=== PATIENT | male | born 1960 | race Caucasian/White ===

== ENCOUNTER 2018-09-22 16:42 | Emergency (ER) | payer BC ==
--- NOTE | 2018-09-22 17:20 | EDM.PDOC ---
ED HPI GENERAL MEDICAL PROBLEM - General Chief Complaint: Allergic Reaction Stated Complaint: HIVES Time Seen by Provider: 09/22/18 16:45 Source of Information: Reports: Patient History Limitations: Reports: No Limitations - History of Present Illness INITIAL COMMENTS - FREE TEXT/NARRATIVE: History of present illness: []Patient has had a breakdown and rash all over his body for the past 4 days. He denies having any insect bites and lesions are not itchy. Since that he had a fever 1 day before that subsided and did not return. Had a mild case of chickenpox when he was a child. She denies any chest pain, shortness of breath, cough or nausea, vomiting or diarrhea. Review of systems: As per history of present illness and below otherwise all systems reviewed and negative. Past medical history: As per history of present illness and as reviewed below otherwise noncontributory. Surgical history: As per history of present illness and as reviewed below otherwise noncontributory. Social history: No reported history of drug or alcohol abuse. Family history: As per history of present illness and as reviewed below otherwise noncontributory. Physical exam: General: Well developed, well nourished in NAD HEENT: Atraumatic, normocephalic, pupils reactive, negative for conjunctival pallor or scleral icterus, mucous membranes moist, throat clear, neck supple, nontender, trachea midline. Lungs: Clear to auscultation, breath sounds equal bilaterally, chest nontender. Heart: S1S2, regular, negative for clicks, rubs, or JVD. Abdomen: NABS, Soft, nondistended, nontender. Negative for masses or hepatosplenomegaly. Negative for costovertebral tenderness. Pelvis: Stable nontender. Genitourinary: Deferred. Rectal: Deferred. Extremities: Atraumatic, negative for cords or calf pain. Neurovascular unremarkable. Neuro: Awake, alert, oriented. Cranial nerves II through XII unremarkable. Cerebellum unremarkable. Motor and sensory unremarkable throughout. Exam nonfocal. Skin: Diffuse 3-4 mm erythematous lesions with crusting some have pustules some are just raised. No sign of of infection on any of the lesions, warm and dry Diagnostics: None Therapeutics: None ED Course: Stable Impression: Varicella Prescriptions: None Plan: Follow-up with primary care return if symptoms worsen Definitive disposition and diagnosis as appropriate pending reevaluation and review of above. - Related Data Allergies Allergy/AdvReac Type Severity Reaction Status Date / Time almond Allergy Hives Verified 09/22/18 17:04 Home Meds: Home Meds Allopurinol [Zyloprim] 300 mg PO DAILY 05/19/14 [History] Losartan [Cozaar] 50 mg PO DAILY 05/19/14 [History] Vitamin B Complex 1 each PO DAILY 05/19/14 [History] Aspirin 81 mg PO DAILY 09/22/18 [History] Past Medical History Cardiovascular History: Reports: Hypertension - Infectious Disease History Infectious Disease History: Reports: Chicken Pox - Past Surgical History GI Surgical History: Reports: Appendectomy, Bariatric Procedure Social & Family History - Tobacco Use Smoking Status *Q: Never Smoker - Recreational Drug Use Recreational Drug Use: No ED ROS ALLERGIC REACTION - Review of Systems Review Of Systems: ROS reveals no pertinent complaints other than HPI. ED EXAM GENERAL NO PERIP PULSE - Physical Exam Exam: See Below (See history of present illness) Course - Vital Signs Last Recorded V/S: Last Vital Signs Temp 97.8 F 09/22/18 17:05 Pulse 90 09/22/18 17:05 Resp 16 09/22/18 17:05 BP 129/87 09/22/18 17:05 Pulse Ox 95 09/22/18 17:05 Departure - Departure Time of Disposition: 17:19 Disposition: Home, Self-Care 01 Condition: Good Clinical Impression: Chickenpox Qualifiers: Varicella complications: without complication Qualified Code(s): B01.9 - Varicella without complication - Discharge Information *PRESCRIPTION DRUG MONITORING PROGRAM REVIEWED*: No *COPY OF PRESCRIPTION DRUG MONITORING REPORT IN PATIENT WILLIE: No Referrals: PCP,Unknown [Primary Care Provider] - Additional Instructions: The following information is given to patients seen in the emergency department who are being discharged to home. This information is to outline your options for follow-up care. We provide all patients seen in our emergency department with a follow-up referral. The need for follow-up, as well as the timing and circumstances, are variable depending upon the specifics of your emergency department visit. If you don't have a primary care physician on staff, we will provide you with a referral. We always advise you to contact your personal physician following an emergency department visit to inform them of the circumstance of the visit and for follow-up with them and/or the need for any referrals to a consulting specialist. The emergency department will also refer you to a specialist when appropriate. This referral assures that you have the opportunity for follow-up care with a specialist. All of these measure are taken in an effort to provide you with optimal care, which includes your follow-up. Under all circumstances we always encourage you to contact your private physician who remains a resource for coordinating your care. When calling for follow-up care, please make the office aware that this follow-up is from your recent emergency room visit. If for any reason you are refused follow-up, please contact the [facility] Emergency Department at and asked to speak to the emergency department charge nurse. [facility] [address] [place] [id number]
== END 2018-09-22 17:30 | disposition home or self-care (01) ==
LOC: MW.ED 16:42
DX: B01.9 Varicella without complication (principal); I10 Essential (primary) hypertension; Z79.899 Other long term (current) drug therapy; Z79.82 Long term (current) use of aspirin; Z91.018 Allergy to other foods
CPT/HCPCS: 99282

== ENCOUNTER 2021-02-22 16:38 | Emergency (ER) | payer BC ==
--- NOTE | 2021-02-22 17:02 | EDM.PDOC ---
<Axel John - Last Filed: 02/22/21 18:53> ED HPI GENERAL MEDICAL PROBLEM - General Chief Complaint: Neuro Symptoms/Deficits Stated Complaint: SEIZURE Time Seen by Provider: 02/22/21 16:39 - History of Present Illness INITIAL COMMENTS - FREE TEXT/NARRATIVE: CHIEF COMPLAINT(S): Seizure HISTORY OF PRESENT ILLNESS: This is a 60-year-old man with a past medical history of gout, hypertension who comes to the emergency department with a chief complaint of seizure. Per EMS: The patient had a seizure while at the grocery store. It is uncertain what type of seizure however upon arrival the patient was noted to be possibly postictal and alert and oriented x2. They state that his EKG did show PVCs otherwise his vitals were stable in route. The patient states that he is not currently experiencing any symptoms. He denies any headache, chest pain, shortness of breath, abdominal pain, nausea or vomiting. He denies any blurry vision, double vision, loss of vision. He denies any numbness, tingling, weakness. He denies any trouble walking, speaking or swallowing. He states that he has not had a seizure in the past and denies any history of seizure disorder. He denies any recent travel, recent surgery, prior history of DVT or PE. He states that he had no preceding symptoms. He does not recall the event. REVIEW OF SYSTEMS: Constitutional: Denies fever, chills. Eyes: Denies eye pain Ears, Nose, Mouth, & Throat: Denies earache Cardiovascular: Denies chest pain Respiratory: Denies shortness of breath Gastrointestinal: Denies abdominal pain, nausea, vomiting, diarrhea, hematoch ezia. Genitourinary: Denies hematuria, urinary incontinence Skin:Denies a rash MSK: Denies joint pain Neurological: Denies blurred vision, numbness, tingling, weakness, headache Psychiatric: Denies depression PAST MEDICAL HISTORY: As per history of present illness and as reviewed below otherwise noncontributory. SURGICAL HISTORY: As per history of present illness and as reviewed below otherwise noncontributory. SOCIAL HISTORY: As per history of present illness and as reviewed below otherwise noncontributory. FAMILY HISTORY: As per history of present illness and as reviewed below otherwise noncontributory. EXAMINATION OF ORGAN SYSTEMS/BODY AREAS: Constitutional: Blood pressure is 155/95, heart rate 120, respiratory rate 18 with an oxygen saturation of 92% on room air. Temperature 36.7 General: Well-appearing man who is in no acute distress Psychiatric: Appropriate mood and affect. Eyes: No scleral icterus or conjunctival erythema pupils are equal round reactive to light. Extraocular movements intact. No nystagmus noted. No proptosis. No signs of entrapment. ENMT: Moist mucous membranes. No pharyngeal erythema no blood in the oropharynx. No missing or chipped teeth. No tongue laceration. No stridor, drooling or trismus. Cardiovascular: Regular, rate, and rhythm. No gallops, murmurs, or rubs. Bilateral upper extremity pulses symmetric and intact. No peripheral edema. No JVD. Respiratory: Lungs clear to auscultation bilaterally. No wheezes, rales, or rhonchi. Gastrointestinal: Soft, non-tender, non-distended. Normoactive bowel sounds Genitourinary: No suprapubic tenderness Musculoskeletal: Normal range of motion. Skin: No lesions or abrasions. Neurological: AOx4. CN grossly intact. Strength 5/5 in bilateral upper and lower extremity. Sensation is intact bilaterally in upper and lower extremity. Gait appears normal. MEDICAL DECISION MAKING AND COURSE IN THE ED WITH INTERPRETATION/REVIEW OF DIAGNOSTIC STUDIES: This is a 60-year-old man with a past medical history of hypertension and gout who comes to the emergency department with reported seizure versus syncope who is tachycardic and hypoxic but is alert and oriented x4 with no focal neurological deficits. At this time we did place the patient on cardiac monitoring which did reveal sinus rhythm and pulse oximetry with good waveform revealed 92% on room air. At this time given the tachycardia and hypoxia we did obtain an EKG. EKG did not reveal any signs of ischemia. Given the tachycardia and hypoxia and possible syncope will obtain a CT angiogram of the chest to evaluate for pulmonary embolism. The patient will undergo a cardiac work-up. In addition given the possibility of a seizure in a 60-year-old man we will obtain a CT head without contrast to evaluate for intracranial hemorrhage or mass or other abnormality. The patient was amenable to this plan. At this time I do not believe any medications are needed and we will reevaluate. Laboratory: CBC is unremarkable. CMP is unremarkable. Troponin is negative. CPK is normal. Lactic acid is mildly elevated at 2.7 otherwise unremarkable. Serum alcohol is negative. Covid is negative. On reevaluation patient's oxygenation on pulse oximetry was 95% and patient continued to have sinus tachycardia at 108. The patient at this time stated that he has had a gastric bypass in the past and he does have episodes of hypoglycemia. He states that he was experiencing 1 of these episodes while in the grocery store and he had eaten a red hot but his sugar may have dropped too low. He states that this has happened in the past. However at this time I did discuss that I would still like to complete further work-up given his initial hypoxia and tachycardia. He was amenable to this plan. Given the lactic acidosis I did provide the patient with 1 L of lactated Ringer's bolus. At the time of signout patient was pending CT head without contrast and CT angiogram of the chest. Patient was stable at this time. DISPOSITION: Patient was signed out to [facility] team physician pending CT reads and final disposition CONDITION: Fair PROCEDURES: Cardiac monitoring interpretation, pulse oximetry interpretation FINAL IMPRESSION(S)/DIAGNOSES: 1. Acute seizure versus syncopal episode 2. Acute lactic acidosis Critical Care Procedure Note Authorized and performed by: Axel John M.D. Critical Care Time: 36 minutes Due to a high probability of clinically significant, life threatening deterioration, the patient required my highest level of preparedness to intervene emergently and I personally spent this critical care time directly and personally managing the patient. This critical care time included obtaining a history, examining the patient, pulse oximetry; ordering and review of studies; arranging urgent treatment with development of a management plan; evaluation of a patients reponse to treatment; frequent assessment; and discussions with other providers. This critical care time was performed to assess and manage the high probability of imminent, life threatening deterioration that could result in multiorgan failure. It was exclusive of separate billable procedures and treating other patients. Please see MDM section and rest of the note for further information on patient assessment and treatment. Please see MDM section and rest of the note for further information on patient assessment and treatment. Axel John M.D.` - Related Data Allergies Allergy/AdvReac Type Severity Reaction Status Date / Time almond Allergy Hives Verified 02/22/21 16:43 Home Meds: Home Meds Losartan [Cozaar] 50 mg PO DAILY 05/19/14 [History] Vitamin B Complex 1 each PO DAILY 05/19/14 [History] allopurinoL [Zyloprim] 300 mg PO DAILY 05/19/14 [History] Aspirin 81 mg PO DAILY 09/22/18 [History] Cholecalciferol (Vitamin D3) [Vitamin D] 5,000 unit PO DAILY 02/22/21 [History] Past Medical History HEENT History: Reports: None Cardiovascular History: Reports: Hypertension Respiratory History: Reports: None Gastrointestinal History: Reports: None Genitourinary History: Reports: Other (See Below) Other Genitourinary History: reoccuring Gout Musculoskeletal History: Reports: None Neurological History: Reports: None Psychiatric History: Reports: None Endocrine/Metabolic History: Reports: None Hematologic History: Reports: None Immunologic History: Reports: None Oncologic (Cancer) History: Reports: None Dermatologic History: Reports: None - Infectious Disease History Infectious Disease History: Reports: Chicken Pox, Measles - Past Surgical History Head Surgeries/Procedures: Reports: None GI Surgical History: Reports: Appendectomy, Bariatric Procedure Social & Family History - Family History Family Medical History: No Pertinent Family History - Tobacco Use Tobacco Use Status *Q: Never Tobacco User - Caffeine Use Caffeine Use: Reports: Soda - Recreational Drug Use Recreational Drug Use: No ED ROS GENERAL - Review of Systems Review Of Systems: See Below ED EXAM, GENERAL - Physical Exam Exam: See Below Departure - Departure Disposition: Home, Self-Care 01 Clinical Impression: Seizure - Discharge Information Instructions: Seizure, Adult, [id number] Referrals: PCP,Not In Area [Primary Care Provider] - Forms: ED Department Discharge Additional Instructions: The following information is given to patients seen in the emergency department who are being discharged to home. This information is to outline your options for follow-up care. We provide all patients seen in our emergency department wi th a follow-up referral. The need for follow-up, as well as the timing and circumstances, are variable depending upon the specifics of your emergency department visit. If you don't have a primary care physician on staff, we will provide you with a referral. We always advise you to contact your personal physician following an emergency department visit to inform them of the circumstance of the visit and for follow-up with them and/or the need for any referrals to a consulting specialist. The emergency department will also refer you to a specialist when appropriate. This referral assures that you have the opportunity for follow-up care with a specialist. All of these measure are taken in an effort to provide you with optimal care, which includes your follow-up. Under all circumstances we always encourage you to contact your private physician who remains a resource for coordinating your care. When calling for follow-up care, please make the office aware that this follow-up is from your recent emergency room visit. If for any reason you are refused follow-up, please contact the [facility] Emergency Department at and asked to speak to the emergency department charge nurse. Please follow up with your primary care physician. If you do not have a primary care physician, see below: [facility] - Neurology Professional Building [address] [place] [address], [address] [place] [address] Cardiac Rehabilitation at [facility] [address] [place] [id number] You were seen today after having a possible seizure. Is unclear what happened we did CT scans and labs your calcium was low we repeated that did not show any structural damage on your brain a CAT scan. Due to this possible seizure recommend do not drive or operate heavy machinery until you are seen and cleared by neurology. Above is the number for our neurologist in [facility] to call and follow-up with as an outpatient. If you have any other concerning signs or symptoms please feel free to return to the emergency department. Sepsis Event Note (ED) - Evaluation Sepsis Screening Result: No Definite Risk <Valeriano Mejia - Last Filed: 02/22/21 22:48> Course - Vital Signs Last Recorded V/S: Last Vital Signs Temp 98.1 F 02/22/21 16:44 Pulse 81 02/22/21 22:07 Resp 20 02/22/21 22:07 BP 147/78 H 02/22/21 22:07 Pulse Ox 97 02/22/21 22:07 - Orders/Labs/Meds Orders: Active Orders 24 hr Category Date Time Status Blood Glucose Check, Bedside [RC] ONETIME Care 02/22/21 17:59 Active Cardiac Monitoring [RC] . DIRECTED Care 02/22/21 16:39 Active Pulse Oximetry [RC] ASDIRECTED Care 02/22/21 16:39 Active Lactated Ringers [Ringers, Lactated] 1,000 ml Med 02/22/21 19:00 Active IV ASDIRECTED Medication Orders Lactated Ringer's (Ringers, Lactated) 1,000 mls @ 999 mls/hr IV ASDIRECTED ANTHONY Last Admin: 02/22/21 19:06 Dose: 999 mls/hr Documented by: CARLYN Labs: Laboratory Tests 02/22/21 02/22/21 02/22/21 Range/Units 17:15 17:15 17:18 WBC 7.33 (4.0-11.0) K/uL RBC 4.13 L (4.50-5.90) M/uL Hgb 13.1 (13.0-17.0) g/dL Hct 39.8 (38.0-50.0) % MCV 96.4 (80.0-98.0) fL MCH 31.7 (27.0-32.0) pg MCHC 32.9 (31.0-37.0) g/dL RDW Std Deviation 50.8 (28.0-62.0) fl RDW Coeff of Hollis 15 (11.0-15.0) % Plt Count 272 (150-400) K/uL MPV 9.20 (7.40-12.00) fL Neut % (Auto) 69.2 (48.0-80.0) % Lymph % (Auto) 20.7 (16.0-40.0) % Dyer % (Auto) 8.0 (0.0-15.0) % Eos % (Auto) 1.8 (0.0-7.0) % Baso % (Auto) 0.3 (0.0-1.5) % Neut # (Auto) 5.1 (1.4-5.7) K/uL Lymph # (Auto) 1.5 (0.6-2.4) K/uL Dyer # (Auto) 0.6 (0.0-0.8) K/uL Eos # (Auto) 0.1 (0.0-0.7) K/uL Baso # (Auto) 0.0 (0.0-0.1) K/uL Nucleated RBC % 0.0 /100WBC Nucleated RBCs # 0 K/uL Sodium 141 (136-148) mmol/L Potassium 3.6 (3.5-5.1) mmol/L Chloride 104 (98-107) mmol/L Carbon Dioxide 25.2 (21.0-32.0) mmol/L BUN 10 (7.0-18.0) mg/dL Creatinine 1.2 (0.8-1.3) mg/dL Est Cr Clr Drug Dosing 72.13 mL/min Estimated GFR (MDRD) > 60.0 ml/min Glucose 90 (74-106) mg/dL POC Glucose (70-99) mg/dL Lactic Acid (0.4-2.0) mmol/L Calcium 8.2 L (8.5-10.1) mg/dL Magnesium 1.8 (1.8-2.4) mg/dL Total Bilirubin 0.4 (0.2-1.0) mg/dL AST 14 L (15-37) IU/L ALT 17 (14-63) IU/L Alkaline Phosphatase 108 (46-116) U/L Creatine Kinase 70 (26-308) U/L Troponin I < 0.050 (0.000-0.056) ng/mL Total Protein 7.2 (6.4-8.2) g/dL Albumin 3.3 L (3.4-5.0) g/dL Globulin 3.9 (2.6-4.0) g/dL Albumin/Globulin Ratio 0.9 (0.9-1.6) Urine Opiates Screen (NEGATIVE) Ur Oxycodone Screen (NEGATIVE) Urine Methadone Screen (NEGATIVE) Ur Barbiturates Screen (NEGATIVE) Ur Phencyclidine Scrn (NEGATIVE) Ur Amphetamine Screen (NEGATIVE) U Methamphetamines Scrn (NEGATIVE) U Benzodiazepines Scrn (NEGATIVE) U Cocaine Metab Screen (NEGATIVE) U Marijuana (THC) Screen (NEGATIVE) Ethyl Alcohol < 3.0 mg/dL SARS-CoV-2 RNA (MADDI) NEGATIVE (NEGATIVE) 02/22/21 02/22/21 02/22/21 Range/Units 17:28 18:00 21:00 WBC (4.0-11.0) K/uL RBC (4.50-5.90) M/uL Hgb (13.0-17.0) g/dL Hct (38.0-50.0) % MCV (80.0-98.0) fL MCH (27.0-32.0) pg MCHC (31.0-37.0) g/dL RDW Std Deviation (28.0-62.0) fl RDW Coeff of Hollis (11.0-15.0) % Plt Count (150-400) K/uL MPV (7.40-12.00) fL Neut % (Auto) (48.0-80.0) % Lymph % (Auto) (16.0-40.0) % Dyer % (Auto) (0.0-15.0) % Eos % (Auto) (0.0-7.0) % Baso % (Auto) (0.0-1.5) % Neut # (Auto) (1.4-5.7) K/uL Lymph # (Auto) (0.6-2.4) K/uL Dyer # (Auto) (0.0-0.8) K/uL Eos # (Auto) (0.0-0.7) K/uL Baso # (Auto) (0.0-0.1) K/uL Nucleated RBC % /100WBC Nucleated RBCs # K/uL Sodium (136-148) mmol/L Potassium (3.5-5.1) mmol/L Chloride (98-107) mmol/L Carbon Dioxide (21.0-32.0) mmol/L BUN (7.0-18.0) mg/dL Creatinine (0.8-1.3) mg/dL Est Cr Clr Drug Dosing mL/min Estimated GFR (MDRD) ml/min Glucose (74-106) mg/dL POC Glucose 91 (70-99) mg/dL Lactic Acid 2.7 H* (0.4-2.0) mmol/L Calcium (8.5-10.1) mg/dL Magnesium (1.8-2.4) mg/dL Total Bilirubin (0.2-1.0) mg/dL AST (15-37) IU/L ALT (14-63) IU/L Alkaline Phosphatase (46-116) U/L Creatine Kinase (26-308) U/L Troponin I (0.000-0.056) ng/mL Total Protein (6.4-8.2) g/dL Albumin (3.4-5.0) g/dL Globulin (2.6-4.0) g/dL Albumin/Globulin Ratio (0.9-1.6) Urine Opiates Screen NEGATIVE (NEGATIVE) Ur Oxycodone Screen NEGATIVE (NEGATIVE) Urine Methadone Screen NEGATIVE (NEGATIVE) Ur Barbiturates Screen NEGATIVE (NEGATIVE) Ur Phencyclidine Scrn NEGATIVE (NEGATIVE) Ur Amphetamine Screen NEGATIVE (NEGATIVE) U Methamphetamines Scrn NEGATIVE (NEGATIVE) U Benzodiazepines Scrn NEGATIVE (NEGATIVE) U Cocaine Metab Screen NEGATIVE (NEGATIVE) U Marijuana (THC) Screen NEGATIVE (NEGATIVE) Ethyl Alcohol mg/dL SARS-CoV-2 RNA (MADDI) (NEGATIVE) 02/22/21 Range/Units 22:14 WBC (4.0-11.0) K/uL RBC (4.50-5.90) M/uL Hgb (13.0-17.0) g/dL Hct (38.0-50.0) % MCV (80.0-98.0) fL MCH (27.0-32.0) pg MCHC (31.0-37.0) g/dL RDW Std Deviation (28.0-62.0) fl RDW Coeff of Hollis (11.0-15.0) % Plt Count (150-400) K/uL MPV (7.40-12.00) fL Neut % (Auto) (48.0-80.0) % Lymph % (Auto) (16.0-40.0) % Dyer % (Auto) (0.0-15.0) % Eos % (Auto) (0.0-7.0) % Baso % (Auto) (0.0-1.5) % Neut # (Auto) (1.4-5.7) K/uL Lymph # (Auto) (0.6-2.4) K/uL Dyer # (Auto) (0.0-0.8) K/uL Eos # (Auto) (0.0-0.7) K/uL Baso # (Auto) (0.0-0.1) K/uL Nucleated RBC % /100WBC Nucleated RBCs # K/uL Sodium (136-148) mmol/L Potassium (3.5-5.1) mmol/L Chloride (98-107) mmol/L Carbon Dioxide (21.0-32.0) mmol/L BUN (7.0-18.0) mg/dL Creatinine (0.8-1.3) mg/dL Est Cr Clr Drug Dosing mL/min Estimated GFR (MDRD) ml/min Glucose (74-106) mg/dL POC Glucose (70-99) mg/dL Lactic Acid 1.7 (0.4-2.0) mmol/L Calcium (8.5-10.1) mg/dL Magnesium (1.8-2.4) mg/dL Total Bilirubin (0.2-1.0) mg/dL AST (15-37) IU/L ALT (14-63) IU/L Alkaline Phosphatase (46-116) U/L Creatine Kinase (26-308) U/L Troponin I (0.000-0.056) ng/mL Total Protein (6.4-8.2) g/dL Albumin (3.4-5.0) g/dL Globulin (2.6-4.0) g/dL Albumin/Globulin Ratio (0.9-1.6) Urine Opiates Screen (NEGATIVE) Ur Oxycodone Screen (NEGATIVE) Urine Methadone Screen (NEGATIVE) Ur Barbiturates Screen (NEGATIVE) Ur Phencyclidine Scrn (NEGATIVE) Ur Amphetamine Screen (NEGATIVE) U Methamphetamines Scrn (NEGATIVE) U Benzodiazepines Scrn (NEGATIVE) U Cocaine Metab Screen (NEGATIVE) U Marijuana (THC) Screen (NEGATIVE) Ethyl Alcohol mg/dL SARS-CoV-2 RNA (MADDI) (NEGATIVE) Meds: Medications Generic Name Dose Route Start Last Admin Trade Name Freq PRN Reason Stop Dose Admin Lactated Ringer's 1,000 mls @ 999 mls/hr 02/22/21 19:00 02/22/21 19:06 Ringers, Lactated IV 999 mls/hr ASDIRECTED ANTHONY Administration Discontinued Medications Generic Name Dose Route Start Last Admin Trade Name Freq PRN Reason Stop Dose Admin Calcium Gluconate 1 gm 02/22/21 21:08 02/22/21 21:20 Calcium Gluconate 10% 1 Gm/10 Ml Sdv IVPUSH 02/22/21 21:09 1 gm ONETIME ONE Administration - Re-Assessments/Exams Free Text/Narrative Re-Assessment/Exam: 02/22/21 21:09 Patient signed out to me from previous provider at the patient had a possible seizure versus syncope. Patient did have a postictal period after EMS and a slight elevation of his lactate point more toward seizure. Patient CT head and CT angiogram reviewed we will have patient follow-up with neurology as outpatient patient struck not to drive or operate heavy machinery until cleared by neurology. Departure - Departure Time of Disposition: 22:37 Condition: Good - Discharge Information *PRESCRIPTION DRUG MONITORING PROGRAM REVIEWED*: Not Applicable *COPY OF PRESCRIPTION DRUG MONITORING REPORT IN PATIENT WILLIE: Not Applicable Sepsis Event Note (ED) - Focused Exam Vital Signs: Vital Signs Temp Pulse Resp BP Pulse Ox 02/22/21 22:07 81 20 147/78 H 97 02/22/21 21:00 69 20 155/75 H 95 02/22/21 20:00 82 20 140/88 96 02/22/21 18:03 106 H 16 147/75 H 95 02/22/21 16:44 98.1 F 120 H 18 155/95 H 92 L
--- NOTE | 2021-02-22 17:03 | PCM.EKG ---
#1 Interpretation EKG Date: 02/22/21 Time: 16:44 Rhythm: NSR Rate (Beats/Min): 108 [place]: LAD-Left [place] Deviation P-Wave: Present QRS: Normal (occasional pvc) ST-T: Normal QT: Normal Comparison: NA - No Prior EKG EKG Interpretation Comments: Sinus Tachycardia with occasional PVC
[2021-02-22 17:58] LABS: BLOOD UREA NITROGEN,BUN 10 mg/dL (7.0-18.0); CARBON DIOXIDE,CO2 25.2 mmol/L (21.0-32.0); CHLORIDE,CL 104 mmol/L (98-107); GLUCOSE RANDOM 90 mg/dL (74-106); POTASSIUM,K 3.6 mmol/L (3.5-5.1); SODIUM,NA 141 mmol/L (136-148)
--- NOTE | 2021-02-22 18:48 | CT ---
INDICATION: new onset seizure, patient states low blood sugar and passed out CT HEAD WITHOUT CONTRAST TECHNIQUE: Multiple axial CT images were performed through the head without intravenous contrast administration. COMPARISON: No previous studies are currently available for comparison. FINDINGS: No acute intracranial hemorrhage is identified. No extra-axial collections are evident and there is no mass effect or midline shift. There is very mild diffuse age-related brain atrophy. Ventricular size and configuration are within normal limits for the patient`s age. Cabrera-white differentiation is within normal limits. Minimal intracranial atherosclerotic vascular calcifications are noted. Osseous structures are within normal limits and no fractures are seen. Included portions of the paranasal sinuses and mastoid air cells are normally aerated aside from trace maxillary sinus mucosal thickening. IMPRESSION: 1. No acute intracranial abnormality identified. 2. Mild age-related brain atrophy and intracranial atherosclerotic vascular calcifications. SHIKHA SHEEHAN MD [facility] Please note that all CT scans at this facility use dose modulation, iterative reconstruction, and/or weight-based dosing when appropriate to reduce radiation dose to as low as reasonably achievable. Dictated by: Uri Sheehan MD @ 02/22/2021 18:46:49 (Electronically Signed)
[2021-02-22] MEDS ORDERED: Lactated Ringers 1,000 ML IV SCH (19:00)
--- NOTE | 2021-02-22 19:19 | CT ---
INDICATION: Hypoxia and syncope TECHNIQUE: CT chest PE was acquired with 100 cc Isovue 370 intravenous contrast. COMPARISON: None. FINDINGS: Heart and vasculature: Contrast opacification of the pulmonary artery is suboptimal. Examination is considered nondiagnostic beyond the proximal segmental level. However, no pulmonary emboli seen. Aortic arch is left-sided with atherosclerotic calcification. Coronary atherosclerosis. Lungs and pleural: No pleural effusion or pneumothorax. No focal consolidation. Lymph nodes/mediastinum: No mediastinal, hilar, or axillary adenopathy. Chest wall: No masses. Upper abdomen: Status post gastric bypass. Some inhomogeneity of the gallbladder lumen although this may be due to quantum mottle. Bones: Unremarkable for age. IMPRESSION: 1. Suboptimal examination due to decreased opacification of the pulmonary artery. However, no proximal pulmonary emboli seen. 2. No acute pulmonary consolidation. Please note that all CT scans at this facility use dose modulation, iterative reconstruction, and/or weight-based dosing when appropriate to reduce radiation dose to as low as reasonably achievable. Dictated by Orlando Barrett MD @ 02/22/2021 7:17:50 PM (Electronically Signed)
[2021-02-22] MEDS ORDERED: Calcium Gluconate 10% 1 GM/10 ML SDV IVPUSH ONE (21:08)
== END 2021-02-22 22:59 | disposition home or self-care (01) ==
LOC: MW.ED 16:38
DX: R56.9 Unspecified convulsions (principal); E87.2 Acidosis; I10 Essential (primary) hypertension; M10.9 Gout, unspecified; Z91.018 Allergy to other foods; Z79.82 Long term (current) use of aspirin; Z79.899 Other long term (current) drug therapy; Z20.822 Contact with and (suspected) exposure to COVID-19
CPT/HCPCS: 36415; 70450; 71275; 80053; 80305; 80307; 82550; 82947; 83605; 83735; 84484; 85025; 87635; 93005; 96374; 99285; J0610; J7120; U0002